=== PATIENT | male | born 1965 | race Caucasian/White ===

== ENCOUNTER 2016-09-29 13:01 | Inpatient (IN) | payer BC ==
[2016-09-29 17:24] VITALS: BP 156/91
[2016-09-29 18:11] VITALS: BP 156/91
[2016-09-29 22:28] VITALS: BP 145/95
[2016-09-30 02:14] VITALS: BP 146/92
[2016-09-30 06:10] VITALS: BP 157/94
[2016-09-30 11:00] VITALS: BP 152/95
[2016-09-30 15:32] VITALS: BP 158/102
[2016-09-30 19:36] VITALS: BP 167/109
[2016-09-30 22:14] VITALS: BP 157/94
[2016-10-01 02:56] VITALS: BP 140/84
[2016-10-01 06:11] VITALS: BP 140/84
[2016-10-01] MEDS ORDERED: ACETAMINOPHEN-H1 TA2 PO (10:38)
[2016-10-01 11:31] VITALS: BP 165/102
== END 2016-10-01 12:04 | disposition home or self-care (01) | DRG 682 ==
LOC: ED 13:01 → MED/SURG 17:14
PROVIDERS: ADMIT Physician Assistant
DX: N17.9 Acute kidney failure, unspecified (principal); K85.90 Acute pancreatitis without necrosis or infection, unspecified; T39.315A Adverse effect of propionic acid derivatives, initial encounter
CPT/HCPCS: J1885; J2405; J7120

== ENCOUNTER → 2016-10-03 | Outpatient (CLI) | payer BC ==
[2016-10-01 11:31] VITALS: BP 165/102
[~2016-10-03] MED LIST: ACETAMINOPHEN-H1 TA2 PO
== END ==
LOC: LAB 08:01
DX: R10.9 Unspecified abdominal pain (principal)

== ENCOUNTER → 2016-10-06 | Outpatient (CLI) | payer BC ==
[2016-10-01 11:31] VITALS: BP 165/102
== END ==
LOC: LAB 09:03
DX: K83.1 Obstruction of bile duct (principal)

== ENCOUNTER → 2017-04-04 | Outpatient (CLI) | payer BC | LOC: LAB 15:56 | DX: R07.9 Chest pain, unspecified (principal) ==

== ENCOUNTER → 2017-04-11 | Outpatient (CLI) | payer BC | LOC: RAD 08:12 | DX: M25.512 Pain in left shoulder (principal) ==

== ENCOUNTER → 2017-04-16 | Outpatient (CLI) | payer BC | LOC: CARDREHAB 08:03 | DX: R07.9 Chest pain, unspecified (principal); I10 Essential (primary) hypertension ==

== ENCOUNTER → 2017-04-17 | Outpatient (CLI) | payer BC | LOC: RAD 08:30 | DX: M89.9 Disorder of bone, unspecified (principal); M25.512 Pain in left shoulder | CPT/HCPCS: Q9967 ==

== ENCOUNTER → 2017-04-24 | Outpatient (CLI) | payer BC ==
[2017-04-24 08:13] LABS: EOS # 0.2 (0.04-0.40); EOS % 2.9 % (0.0-4.0); HEMATOCRIT 45.1 % (42.0-52.0); HEMOGLOBIN 15.3 g/dL (13.5-18.0); LYMPH# 2.5 (1.50-4.00); MEAN CELL VOLUME 89 fl (78-100); MEAN CORPUSCULAR HEMOGLOBIN 30 pg (27-31); MEAN CORPUSCULAR HGB CONC 34 g/dL (33-37); MEAN PLATELET VOLUME 11.2 fl (7.4-10.4); MONO # 0.7 (0.20-0.80); NEU # 3.8 (1.40-6.50); PLATELET COUNT 247 K/mm3 (130-400); RED BLOOD COUNT 5.05 M/mm3 (4.20-5.60); RED CELL DISTRIBUTION WIDTH 13.2 % (11.5-14.5); WHITE BLOOD COUNT 7.2 K/mm3 (4.8-10.8)
[2017-04-24 08:27] LABS: BUN/CREATININE RATIO 15.6 (6.0-26.0); CALCIUM 9.9 mg/dL (8.4-10.2); POTASSIUM 4.7 mmol/L (3.6-5.0); TOTAL BILIRUBIN 0.9 mg/dL (0.2-1.3); TOTAL PROTEIN 8.9 g/dL (6.3-8.2)
== END ==
LOC: LAB 07:59
DX: D49.2 Neoplasm of unspecified behavior of bone, soft tissue, and skin (principal)

== ENCOUNTER → 2018-09-16 | Day surgery (SDC) | payer BC | LOC: MSO 09:13 | DX: Z12.11 Encounter for screening for malignant neoplasm of colon (principal); J30.2 Other seasonal allergic rhinitis; Z85.79 Personal history of other malignant neoplasms of lymphoid, hematopoietic and related tissues; Z94.81 Bone marrow transplant status; Z90.49 Acquired absence of other specified parts of digestive tract; Z79.82 Long term (current) use of aspirin; Z87.891 Personal history of nicotine dependence | CPT/HCPCS: 00812; J2704; J3010; J7120 ==

== ENCOUNTER → 2020-08-05 | Outpatient (CLI) | payer BC | LOC: LAB 08-04 11:55 | DX: Z01.812 Encounter for preprocedural laboratory examination (principal); Z20.822 Contact with and (suspected) exposure to COVID-19 ==

== ENCOUNTER → 2020-08-09 | Day surgery (SDC) | payer BC | END | disposition home or self-care (01) | LOC: MSO 07:20 | DX: Z12.11 Encounter for screening for malignant neoplasm of colon (principal); K57.90 Diverticulosis of intestine, part unspecified, without perforation or abscess without bleeding; C90.01 Multiple myeloma in remission; Z94.81 Bone marrow transplant status; Z79.899 Other long term (current) drug therapy; Z79.82 Long term (current) use of aspirin | CPT/HCPCS: 00812; J2704; J3010; J7120 ==

== ENCOUNTER → 2020-12-28 | Outpatient (CLI) | payer BC ==
[2020-12-28 15:24] LABS: D-DIMER 0.64 mg/L FEU (0.15-0.50)
== END ==
LOC: LAB 14:45
PROVIDERS: Family Medicine
DX: I82.90 Acute embolism and thrombosis of unspecified vein (principal)

== ENCOUNTER → 2020-12-29 | Outpatient (CLI) | payer BC | LOC: VAS 07:54 | DX: M25.471 Effusion, right ankle (principal) ==

== ENCOUNTER → 2021-04-08 | Outpatient (CLI) | payer BC | LOC: LAB 16:44 | DX: Z20.822 Contact with and (suspected) exposure to COVID-19 (principal) ==

== ENCOUNTER 2022-03-01 10:36 | Emergency (ER) | payer BC ==
[2022-03-01] MEDS ORDERED: SERTRALINE HYDR25 MG PO (11:10)
[2022-03-01] MEDS ORDERED: NEURONTIN300 MG/CAP (11:10)
[2022-03-01] MEDS ORDERED: PANTOPRAZOLE SO40 MG PO (11:10)
[2022-03-01] MEDS ORDERED: TRAMADOL 50 MG TAB PO (11:10)
[2022-03-01] MEDS ORDERED: OCUFLOX OPHTH DR5 ML OD (11:10)
[2022-03-01] MEDS ORDERED: ACYCLOVIR800 MG PO (11:10)
[2022-03-01] MEDS ORDERED: LEVOFLOXACIN750 MG PO (11:10)
[2022-03-01] MEDS ORDERED: FLUCONAZOLE200 MG PO (11:11)
[2022-03-01 11:12] LABS: HEMATOCRIT 36.1 % (42.0-52.0); HEMOGLOBIN 11.5 g/dL (13.5-18.0); MEAN CELL VOLUME 96 fl (78-100); MEAN CORPUSCULAR HEMOGLOBIN 31 pg (27-31); MEAN CORPUSCULAR HGB CONC 32 g/dL (33-37); MEAN PLATELET VOLUME 10.8 fl (7.4-10.4); PLATELET COUNT 230 K/mm3 (130-400); RED BLOOD COUNT 3.76 M/mm3 (4.20-5.60); RED CELL DISTRIBUTION WIDTH 16.8 % (11.5-14.5)
[2022-03-01 11:22] LABS: POTASSIUM 3.3 mmol/L (3.5-5.1)
[2022-03-01 11:24] LABS: TOTAL PROTEIN 6.9 g/dL (6.4-8.3)
[2022-03-01 11:25] LABS: PROTHROMBIN TIME 10.2 SECONDS (9.0-12.0)
[2022-03-01 11:26] LABS: TOTAL BILIRUBIN 0.6 mg/dL (0.2-1.2)
[2022-03-01 12:08] LABS: LYMPHOCYTE 13 % (20-51); MONOCYTE 12 % (3-10); NEUTROPHILS 74 % (42-75)
[2022-03-01 12:09] LABS: POLYCHROMASIA 1+
[2022-03-01 12:10] LABS: MICROCYTOSIS 1+
[2022-03-01 12:33] VITALS: BP 132/88
== END 2022-03-01 12:40 | disposition short-term general hospital (02) ==
LOC: ED 10:36
PROVIDERS: Physician Assistant
DX: C91.00 Acute lymphoblastic leukemia not having achieved remission (principal); I62.00 Nontraumatic subdural hemorrhage, unspecified

== ENCOUNTER → 2023-03-06 | Outpatient (CLI) | payer BC ==
[~2023-03-06] MED LIST changes: +ACYCLOVIR800 MG PO; +FLUCONAZOLE200 MG PO; +LEVOFLOXACIN750 MG PO; +NEURONTIN300 MG/CAP; +OCUFLOX OPHTH DR5 ML OD; +PANTOPRAZOLE SO40 MG PO; +SERTRALINE HYDR25 MG PO; +TRAMADOL 50 MG TAB PO
[2023-03-06 09:39] LABS: BASO # 0.03 K/mm3 (0.02-0.10); EOS # 0.33 K/mm3 (0.04-0.40); EOS % 3.9 % (0.0-4.0); HEMATOCRIT 46.1 % (42.0-52.0); HEMOGLOBIN 14.7 g/dL (13.5-18.0); LYMPH# 0.77 K/mm3 (1.50-4.00); MEAN CELL VOLUME 90 fl (78-100); MEAN CORPUSCULAR HEMOGLOBIN 29 pg (27-31); MEAN CORPUSCULAR HGB CONC 32 g/dL (33-37); MEAN PLATELET VOLUME 10.1 fl (7.4-10.4); NEU # 6.43 K/mm3 (1.40-6.50); PLATELET COUNT 250 K/mm3 (130-400); RED BLOOD COUNT 5.14 M/mm3 (4.20-5.60); RED CELL DISTRIBUTION WIDTH 12.7 % (11.5-14.5); WHITE BLOOD COUNT 8.4 K/mm3 (4.8-10.8)
[2023-03-06 09:47] LABS: ALBUMIN 4.2 g/dL (3.5-5.0); POTASSIUM 3.8 mmol/L (3.5-5.1)
[2023-03-06 09:48] LABS: CALCIUM 9.6 mg/dL (8.3-10.5)
[2023-03-06 09:49] LABS: TOTAL PROTEIN 6.6 g/dL (6.4-8.3)
[2023-03-06 09:51] LABS: TOTAL BILIRUBIN 0.6 mg/dL (0.2-1.2)
[2023-03-06 09:56] LABS: MAGNESIUM 2.1 mg/dL (1.60-2.60)
== END ==
LOC: LAB 09:20
DX: C91.00 Acute lymphoblastic leukemia not having achieved remission (principal); C90.01 Multiple myeloma in remission; Z94.81 Bone marrow transplant status

== ENCOUNTER → 2023-05-28 | Outpatient (CLI) | payer BC ==
[2023-05-28 12:30] LABS: BASO # 0.02 K/mm3 (0.02-0.10); EOS # 0.22 K/mm3 (0.04-0.40); EOS % 4.3 % (0.0-4.0); HEMATOCRIT 45.2 % (42.0-52.0); HEMOGLOBIN 14.8 g/dL (13.5-18.0); LYMPH# 1.46 K/mm3 (1.50-4.00); MEAN CELL VOLUME 87 fl (78-100); MEAN CORPUSCULAR HEMOGLOBIN 28 pg (27-31); MEAN CORPUSCULAR HGB CONC 33 g/dL (33-37); MEAN PLATELET VOLUME 9.8 fl (7.4-10.4); MONO # 0.64 K/mm3 (0.20-0.80); NEU # 2.73 K/mm3 (1.40-6.50); PLATELET COUNT 203 K/mm3 (130-400); RED BLOOD COUNT 5.21 M/mm3 (4.20-5.60); RED CELL DISTRIBUTION WIDTH 13.4 % (11.5-14.5); WHITE BLOOD COUNT 5.1 K/mm3 (4.8-10.8)
[2023-05-28 12:36] LABS: ALBUMIN 4.3 g/dL (3.5-5.0)
[2023-05-28 12:39] LABS: TOTAL PROTEIN 6.6 g/dL (6.4-8.3)
[2023-05-28 12:41] LABS: TOTAL BILIRUBIN 0.8 mg/dL (0.2-1.2)
[2023-05-28 12:45] LABS: MAGNESIUM 1.7 mg/dL (1.60-2.60)
== END ==
LOC: LAB 12:19
PROVIDERS: Internal Medicine Hematology & Oncology
DX: C91.00 Acute lymphoblastic leukemia not having achieved remission (principal); C90.01 Multiple myeloma in remission; Z94.81 Bone marrow transplant status

== ENCOUNTER → 2023-07-23 | Outpatient (CLI) | payer BC ==
[2023-07-23 11:18] LABS: BASO # 0.02 K/mm3 (0.02-0.10); EOS # 0.34 K/mm3 (0.04-0.40); EOS % 6.3 % (0.0-4.0); HEMATOCRIT 47.6 % (42.0-52.0); HEMOGLOBIN 15.5 g/dL (13.5-18.0); LYMPH# 1.55 K/mm3 (1.50-4.00); MEAN CELL VOLUME 87 fl (78-100); MEAN CORPUSCULAR HEMOGLOBIN 28 pg (27-31); MEAN CORPUSCULAR HGB CONC 33 g/dL (33-37); MEAN PLATELET VOLUME 9.8 fl (7.4-10.4); MONO # 0.61 K/mm3 (0.20-0.80); NEU # 2.91 K/mm3 (1.40-6.50); PLATELET COUNT 248 K/mm3 (130-400); RED BLOOD COUNT 5.45 M/mm3 (4.20-5.60); WHITE BLOOD COUNT 5.4 K/mm3 (4.8-10.8)
[2023-07-23 11:19] LABS: ALBUMIN 4.4 g/dL (3.5-5.0)
[2023-07-23 11:21] LABS: CALCIUM 9.4 mg/dL (8.3-10.5)
[2023-07-23 11:22] LABS: TOTAL PROTEIN 6.9 g/dL (6.4-8.3)
[2023-07-23 11:24] LABS: TOTAL BILIRUBIN 0.54 mg/dL (0.2-1.2)
[2023-07-23 11:28] LABS: MAGNESIUM 1.86 mg/dL (1.60-2.60)
== END ==
LOC: LAB 11:04
PROVIDERS: Internal Medicine Hematology & Oncology
DX: C91.00 Acute lymphoblastic leukemia not having achieved remission (principal); C90.01 Multiple myeloma in remission; Z94.81 Bone marrow transplant status

== ENCOUNTER → 2024-04-21 | Day surgery (SDC) | payer BC | LOC: MSO 08:40 | DX: Z12.11 Encounter for screening for malignant neoplasm of colon (principal); Z94.84 Stem cells transplant status; Z85.79 Personal history of other malignant neoplasms of lymphoid, hematopoietic and related tissues | CPT/HCPCS: 00812; J2704; J7120 ==